=== PATIENT | male | born 1980 | race Native Hawaiian/Other Pacific Islander ===

== ENCOUNTER 2020-04-21 15:59 | Outpatient (CLI) | payer BC | END 2020-04-22 01:11 | disposition home or self-care (01) | LOC: RAD 15:59 | DX: J02.9 Acute pharyngitis, unspecified (principal); J32.9 Chronic sinusitis, unspecified; R53.83 Other fatigue; M54.9 Dorsalgia, unspecified ==

== ENCOUNTER 2020-11-19 07:56 | Outpatient (CLI) | payer BC | END 2020-11-19 19:17 | disposition home or self-care (01) | LOC: RESP 07:56 | PROVIDERS: ATTEND Physician Assistant | DX: R07.89 Other chest pain (principal) ==

== ENCOUNTER 2020-11-20 07:58 | Outpatient (CLI) | payer BC | END 2020-11-20 20:22 | disposition home or self-care (01) | LOC: NM 07:58 | PROVIDERS: ATTEND Internal Medicine | DX: R07.89 Other chest pain (principal) | CPT/HCPCS: A9500 ==